=== PATIENT | female | born 1950 ===

== ENCOUNTER 2025-01-07 08:45 | Inpatient (IN) | payer OTHER ==
[~2025-01-07] VITALS: Ht 149.9 cm; Wt 55.3 kg
[2025-01-07 10:46] LABS: URINE APPEARANCE Clear; URINE BILIRRUBIN Negative (NEGATIVE); URINE BLOOD Negative; URINE COLOR Yellow; URINE GLUCOSE Negative (NEGATIVE); URINE KETONE Negative (NEGATIVE); URINE LEUKOCYTE Trace; URINE NITRATE Negative; URINE PROTEIN Negative (NEGATIVE); URINE UROBILINOGEN 0.2 E.U./dl
[2025-01-07 10:53] LABS: URINE BACTERIA 7.1 uL (0.0-1933); URINE CAST 0.00 uL (0.0-1.40); URINE EPITHELIAL CELLS 1.5 uL (0.0-38.8); URINE RBC 12.4 uL (0.0-20.8); URINE WBC 0.9 uL (0.0-23.2)
[2025-01-07 11:07] LABS: BASO % 0.5 % (0.1-1.2); EOS # 0.02 (0.04-0.54); EOS % 0.5 % (0.7-7.0); LYMPH # 1.57 (1.18-3.74); LYMPH % 39.3 % (19.3-53.1); MEAN PLATELET VOLUME 9.60 fl (9.4-12.4); MONO # 0.29 (0.24-0.82); MONO % 7.3 % (4.7-12.5); NEUT # 2.09 (1.56-6.13); NEUT % 52.4 % (34.0-71.1); RED CELL DISTRIBUTION WIDTH 13.7 % (11.6-14.4)
[2025-01-07] MEDS ORDERED: CARTIA XT120 MG PO (11:21)
[2025-01-07] MEDS ORDERED: ELIQUIS2.5 MG PO (11:22)
[2025-01-07] MEDS ORDERED: MIRTAZAPINE15 M1 PO (11:22)
[2025-01-07] MEDS ORDERED: FOSAMAX70 MG PO (11:22)
[2025-01-07] MEDS ORDERED: PEPCID AC20 MG PO (11:22)
[2025-01-07 11:23] VITALS: BP 138/86
[2025-01-07 11:30] LABS: COVID-19 AG NEGATIVE (NEGATIVE)
[2025-01-07 11:33] LABS: INR 0.98
[2025-01-07 11:49] LABS: ALT/SGPT 28.0 U/L (12-78); AST/SGOT 21.0 U/L (15-37); BILIRUBIN TOTAL 0.55 mg/dL (0.3-1.2); BUN CREA RATIO 26.0 (7.0-25.0); CHOL HDL RATIO 1.8 (0-5.0); CREATININE SERUM 0.62 mg/dL (0.55-1.02); GFR 93.84; GLOBULINA 3.5 G/DL (2.4-3.5); GLUCOSE FASTING 98.0 mg/dL (65-100); HDL 89.0 mg/dl (40-60); LDL 60.0 mg/dl (0-130); OSMOLALITY SERUM 288.0 MOSM/KG (275-295); VLDL 6.0 (0-39)
[2025-01-13] MEDS ORDERED: LIDOCAINE HCL 1%/EPINEPHRINE 20ML VIAL IJ ONE (12:54)
[2025-01-13] MEDS ORDERED: BUPIVACAINE HCL/Mpf 0.5% 10ML VIAL ONE (12:54)
[2025-01-13] MEDS ORDERED: TRANEXAMIC ACID 100MG/1ML (1000MG) AMPUL ONE ×2 (12:55→12:58)
[2025-01-13] MEDS ORDERED: VANCOMYCIN HCL 1,000 MG VIAL ONE (12:56)
[2025-01-13] MEDS ORDERED: KETOROLAC TROMETHAMINE 60 MG VIAL IM ONE (14:04)
[2025-01-13] MEDS ORDERED: ENALAPRILAT DIHYDRATE 1.25 MG/ML VIAL IV PRN (16:30)
[2025-01-13] MEDS ORDERED: OxyCODONE HCL 5 MG TABLET (ROXICODONE) PO PRN (19:00)
[2025-01-13] MEDS ORDERED: SODIUM CHLORIDE 0.45 % 1,000 ML IV SCH (19:00)
[2025-01-13] MEDS ORDERED: MORPHINE SULFATE 4 MG/ML CARTRIDGE IV PRN (19:00)
[2025-01-13] MEDS ORDERED: ONDANSETRON HCL 2 MG/ML VIAL IV PRN (19:00)
[2025-01-13] MEDS ORDERED: FAMOTIDINE/PF 20 MG in 0.9 % SODIUM CHLORIDE 8 ML IV PUSH SCH (21:00)
[2025-01-13] MEDS ORDERED: FAMOTIDINE/PF 20 MG/2 ML VIAL ONE (21:04)
[2025-01-13 21:45] VITALS: BP 136/77
[2025-01-14] MEDS ORDERED: ACETAMINOPHEN 500 MG GEL..CAP PO SCH
[2025-01-14 00:42] VITALS: BP 110/73
[2025-01-14] MEDS ORDERED: CEFAZOLIN SODIUM 1,000 MG VIAL IV SCH (01:00)
[2025-01-14] MEDS ORDERED: GABAPENTIN 300 MG CAPSULE PO SCH (01:00)
[2025-01-14 06:48] LABS: BASO % 0.2 % (0.1-1.2); EOS # 0.03 (0.04-0.54); EOS % 0.5 % (0.7-7.0); LYMPH # 1.36 (1.18-3.74); LYMPH % 20.9 % (19.3-53.1); MEAN PLATELET VOLUME 9.80 fl (9.4-12.4); MONO # 0.53 (0.24-0.82); MONO % 8.2 % (4.7-12.5); NEUT # 4.55 (1.56-6.13); NEUT % 69.9 % (34.0-71.1); RED CELL DISTRIBUTION WIDTH 13.8 % (11.6-14.4)
[2025-01-14 08:09] VITALS: BP 127/62
[2025-01-14] MEDS ORDERED: DUI500 PO (08:24)
[2025-01-14] MEDS ORDERED: PERCOCET 5-3251 EACH PO (08:24)
[2025-01-14] MEDS ORDERED: ELIQUIS2.5 MG PO (08:24)
[2025-01-14] MEDS ORDERED: APIXABAN 2.5 MG TABLET PO SCH (09:00)
[2025-01-14] MEDS ORDERED: SENNOSIDES 1 TAB TABLET PO SCH (09:00)
[2025-01-14] MEDS ORDERED: DILTIAZEM HCL 120 MG CAP.SR.24H PO SCH ×2 (09:00)
[2025-01-14] MEDS ORDERED: Cyanocobalamin/Mecobalamin 1 TAB.SL SL NR (13:45)
[2025-01-14 13:58] VITALS: BP 133/78
[2025-01-14 15:47] LABS: COVID-19 AG NEGATIVE (NEGATIVE)
[2025-01-14 16:00] VITALS: BP 114/71
[2025-01-14] MEDS ORDERED: SOD FERRIC GLUC COMPLX/SUCROSE 62.5 MG/5 ML AMPUL IV SCH (17:00)
[2025-01-15 02:39] VITALS: BP 109/69
[2025-01-15 07:31] LABS: BASO % 0.1 % (0.1-1.2); EOS # 0.00 (0.04-0.54); EOS % 0.0 % (0.7-7.0); LYMPH # 1.08 (1.18-3.74); LYMPH % 14.8 % (19.3-53.1); MEAN PLATELET VOLUME 10.20 fl (9.4-12.4); MONO # 0.61 (0.24-0.82); MONO % 8.3 % (4.7-12.5); NEUT # 5.59 (1.56-6.13); NEUT % 76.5 % (34.0-71.1); RED CELL DISTRIBUTION WIDTH 13.7 % (11.6-14.4)
[2025-01-15 08:00] VITALS: BP 104/66
[2025-01-15] MEDS ORDERED: IRON FUM,PS/FOLIC ACID/VITC/B3 1 CAP CAPSULE PO SCH (09:00)
[2025-01-15] MEDS ORDERED: Cyanocobalamin/Mecobalamin 1 TAB.SL SL SCH (09:00)
[2025-01-15 16:32] VITALS: BP 106/68
[2025-01-16 01:46] VITALS: BP 118/67
[2025-01-16 08:00] VITALS: BP 101/64
== END 2025-01-16 10:33 | DRG 470 ==
LOC: SURH 01-13 07:00 → OB/GYN 01-13 09:00 → O/R 01-13 09:00 → OB/GYN 01-13 18:37
PROVIDERS: ADMIT Orthopaedic Surgery; ATTEND Orthopaedic Surgery
PROC: 0QUF0JZ Supplement Left Patella with Synthetic Substitute, Open Approach (ICD-10-PCS; 2025-01-13)
PROC: 0QUF0KZ Supplement Left Patella with Nonautologous Tissue Substitute, Open Approach (ICD-10-PCS; 2025-01-13)
PROC: 0MNP0ZZ Release Left Knee Bursa and Ligament, Open Approach (ICD-10-PCS; 2025-01-13)
PROC: 0SRD0JZ Replacement of Left Knee Joint with Synthetic Substitute, Open Approach (ICD-10-PCS; principal; 2025-01-13 07:00)
DX: M17.12 Unilateral primary osteoarthritis, left knee (principal); D62 Acute posthemorrhagic anemia; M81.0 Age-related osteoporosis without current pathological fracture; Z86.19 Personal history of other infectious and parasitic diseases; Z96.652 Presence of left artificial knee joint; M22.12 Recurrent subluxation of patella, left knee